=== PATIENT | female | born 1960 | race Hispanic/Latino ===

== ENCOUNTER 2016-11-28 09:41 | Outpatient (CLI) | payer MEDICARE ==
--- NOTE | 2016-11-28 14:05 | Mammography Report ---
LEFT DIGITAL DIAGNOSTIC MAMMOGRAM with CAD: 11/28/16 09:41:00 CLINICAL: Follow-up complex cyst at 12 o'clock.. COMPARISON:08/30/16 FINDINGS: The breast is predominantly fatty. The previously described irregular focal asymmetry persists and is slightly more prominent than on the prior mammogram. It persists on the rolled lateral and medial CC views. Ultrasound of the left breast was performed and demonstrated an irregular heterogeneous hypoechoic mass at 12 o'clock 4 cm from the nipple measuring 1.1 x 0.5 x 0.7 cm. The appearance is suggestive of a complex cystic lesion and an adjacent complex cyst versus solid nodule measures 7 x 4 mm compared to 6 x 3 mm on the last exam. IMPRESSION: A slightly more prominent mammographic density and complex cyst versus solid mass at 12 o'clock 4 cm from the nipple. BI-RADS CATEGORY: 4A--Mildly Suspicious RECOMMENDATION: Ultrasound guided needle core biopsy of the left breast. I discussed the findings and the recommendation for needle core biopsy with the patient at the time of the examination. ACR BI-RADS MAMMOGRAPHIC CODES: 0 = Needs additional imaging evaluation; 1 = Negative; 2 = Benign; 3 = Probably benign; 4 = Suspicious; 5 = Malignant; 6 = Known biopsy-proven malignancy COMMENT: 1. Dense breast tissue, i.e., adenosis, fibrocystic changes, etc., may obscure an underlying neoplasm. 2. Approximately 10% of cancers are not detected with mammography. 3. A negative mammography report should not delay biopsy if a clinically suspicious mass is present. COMMENT: Patient follow-up letters are generated by our [email or web address] application.
== END 2016-11-28 09:42 | disposition home or self-care (01) ==
LOC: SPVWC 09:41
PROVIDERS: ATTEND Obstetrics & Gynecology Gynecology
DX: N60.02 Solitary cyst of left breast (principal)
CPT/HCPCS: 76642; G0206

== ENCOUNTER 2018-04-11 06:09 | Day surgery (SDC) | payer MEDICARE ==
[2018-04-11] MEDS ORDERED: NACL BACTERIOSTATIC INFILTRATI ONE (06:52)
[2018-04-11] MEDS ORDERED: DILAUDID IV PRN (07:24)
--- NOTE | 2018-04-11 07:36 | Anesthesia Consultation ---
Anesthesia Consult and Med Hx Date of service: 04/11/18 - Airway Anesthetic Teeth Evaluation: Good ROM Head & Neck: Adequate Mental/Hyoid Distance: Adequate Mallampati Class: Class II Intubation Access Assessment: Good - Pulmonary Exam CTA: Yes - Cardiac Exam Cardiac Exam: No Murmur - Pre-Operative Health Status ASA Pre-Surgery Classification: ASA3 Proposed Anesthetic Plan: General - Pulmonary Hx Smoking: No Hx Asthma: No Hx Sleep Apnea: No (LISSA PRE SCREEN HIGH RISK) - Cardiovascular System Hx Hypertension: Yes (OFF MEDS X 1 YR) Hx Coronary Artery Disease: No Hx Cardia Arrhythmia: No Hx Heart Murmur: No Hx Peripheral Vascular Disease: No - Central Nervous System Hx Seizures: No CVA: No Hx Psychiatric Problems: Yes (Anxiety, Depression, ) - Gastrointestinal Hx Gastroesophageal Reflux Disease: No - Endocrine Hx Renal Disease: Yes (Recurrent renal stones) Hx Liver Disease: No Hx Non-Insulin Dependent Diabetes: Yes Hx Thyroid Disease: No Hx Hypothyroidism: Yes - Hematic Hx Anemia: No - Other Systems Hx Alcohol Use: No Hx Substance Use: No Hx Cancer: Yes Hx Obesity: Yes (BMI= 35)
--- NOTE | 2018-04-11 07:36 | Anesthesia Day of Surgery ---
Anesthesia Day of Surgery - Day of Surgery Patient Examined: Yes Patient H&P Reviewed: Yes Patient is NPO: Yes
[2018-04-11] MEDS ORDERED: PEPCID IV ONE (07:54)
[2018-04-11] MEDS ORDERED: ZOFRAN ONE (07:55)
[2018-04-11] MEDS ORDERED: NACL 0.9% 1000 ML 1,000 ML IV SCH ×2 (08:00)
[2018-04-11] MEDS ORDERED: VERSED IV NR (08:00)
[2018-04-11] MEDS ORDERED: PEPCID PO NR (08:00)
[2018-04-11] MEDS ORDERED: DIPRIVAN 10 MG/ML IV ONE (08:14)
[2018-04-11] MEDS ORDERED: SUBLIMAZE ONE (08:14)
[2018-04-11] MEDS ORDERED: XYLOCAINE MPF 2% ONE (08:15)
[2018-04-11] MEDS ORDERED: DECADRON ONE ×2 (08:28)
[2018-04-11] MEDS ORDERED: NEO SYNEPHRINE/NS Syringe(OR USE) IV ONE (08:34)
[2018-04-11] MEDS ORDERED: NEO SYNEPHRINE ONE (08:50)
--- NOTE | 2018-04-11 08:57 | Post Operative Note ---
Date of procedure: 04/11/18 Pre-op diagnosis: r ureteral stones Post-op diagnosis: same Findings: as above Procedure: r eswl Anesthesia: CHON Surgeon: CORRINE GREENFIELD Estimated blood loss: none Condition: stable Disposition: PACU
--- NOTE | 2018-04-11 08:58 | Discharge Summary ---
Short Stay Discharge Plan Activity: other (no straining ) Weight Bearing Status: Full Weight Bearing Diet: low fat, low cholesterol, low salt Special Instructions: other (inc fluids ) Durable Medical Equipment Needed Upon Discharge: other (has stent ) Follow up with: JEFE ESPINOZA ANP [Primary Care Provider] - 7 Days
[2018-04-11] MEDS ORDERED: ANCEF/STERILE WATER 2 GM/20 ML IV NR (09:00)
--- NOTE | 2018-04-11 09:05 | Operative Report ---
PREOPERATIVE DIAGNOSIS: Right multiple ureteral stones and renal stone, previous stent placement. POSTOPERATIVE DIAGNOSIS: Right multiple ureteral stones and renal stone, previous stent placement. PROCEDURE: Right lithotripsy. SURGEON: Alexandru Monsalve MD ANESTHESIA: General. FINDINGS: This is a woman with severe pain, has 2 large stones in the ureter. A stent was placed. She now presents for lithotripsy. DESCRIPTION OF PROCEDURE: The patient brought to the operating room and placed on the operating table. Following induction of anesthesia, placed in the supine position. The stones were well localized along the J stent that was previously placed about a week and a half ago. Lithotripsy was begun at 1 kV increased to 6 kV. A total of 3000 shocks were given. The patient tolerated the procedure well. No significant complications, brought to recovery in stable condition. I spoke to Dr. Islas. It looks like they fragmented well. JOB# [id number] CARLITA/AMBROSE
[2018-04-11 11:21] VITALS: BP 118/67
--- NOTE | 2018-04-11 14:27 | Post Anesthesia Evaluation ---
- Post Anesthesia Evaluation Patient Participated: Yes Airway Patent: Yes Stable Respiratory Function: Yes Nausea/Vomiting: No Temp > 96.8F: Yes Pain Manageable: Yes Adequeate Hydration: Yes Anesthesia Complications: No
== END 2018-04-11 11:10 | disposition home or self-care (01) ==
LOC: OR 06:09
PROVIDERS: ATTEND Urology
DX: N20.2 Calculus of kidney with calculus of ureter (principal); I10 Essential (primary) hypertension; E11.9 Type 2 diabetes mellitus without complications; E78.00 Pure hypercholesterolemia, unspecified; E03.9 Hypothyroidism, unspecified; F41.9 Anxiety disorder, unspecified; F32.9 Major depressive disorder, single episode, unspecified; Z79.84 Long term (current) use of oral hypoglycemic drugs; Z79.82 Long term (current) use of aspirin; Z91.013 Allergy to seafood; Z88.8 Allergy status to other drugs, medicaments and biological substances; Z88.5 Allergy status to narcotic agent; H54.8 Legal blindness, as defined in USA; Z85.3 Personal history of malignant neoplasm of breast; Z92.3 Personal history of irradiation; Z96.0 Presence of urogenital implants; Z98.51 Tubal ligation status; Z98.42 Cataract extraction status, left eye; Z98.41 Cataract extraction status, right eye; Z90.49 Acquired absence of other specified parts of digestive tract; Z98.890 Other specified postprocedural states
CPT/HCPCS: 82962; J0690; J1100; J2250; J2370; J2405; J2704; J3010; J7030